=== PATIENT | male | born 1965 | race Caucasian/White ===

== ENCOUNTER 2016-12-15 10:24 | Emergency (ER) | payer OTHER ==
[2016-12-15 10:57] VITALS: BP 133/100; PULSE 65; TEMP 98.2; BMI 29.8
--- NOTE | 2016-12-15 11:17 | PDOC ---
History of Present Illness - General Stated Complaint: FALL (PCP SENT) Time Seen by Provider: 12/15/16 10:53 History Source: Patient Exam Limitations: No Limitations - History of Present Illness Initial Comments: 12/15/16 11:16 CHIEF COMPLAINT: Fall HISTORY OF PRESENT ILLNESS: This is a 50-year-old male with a history of CP, MR , and hypothyroidism sent by his facility for evaluation following a fall from his bed. The patient is able to communicate using an electronic device, and states that he slid out of bed on his own has he wanted to use the bathroom and he did not want to wait for anyone to help him. He denies head trauma or any other injuries. He denies LOC. He denies all complaints. V/s on arrival are notable for diastolic BP of 100. REVIEW OF SYSTEMS: Collateral history obtained from aide at bedside GENERAL/CONSTITUTIONAL: No fever or chills. No weakness. No weight change. HEAD, EYES, EARS, NOSE AND THROAT: No change in vision. No ear pain or discharge. No sore throat. CARDIOVASCULAR: No chest pain or palpitations. RESPIRATORY: Persistent cough > 1wk. GASTROINTESTINAL: No nausea, vomiting, diarrhea or constipation. GENITOURINARY: No dysuria, frequency, or change in urination. MUSCULOSKELETAL: No joint or muscle swelling or pain. No neck or back pain. SKIN: No rash or easy bruising. NEUROLOGIC: No headache, vertigo, loss of consciousness, or loss of sensation. PSYCHIATRIC: No depression or anxiety. ENDOCRINE: No increased thirst. No abnormal weight change. HEMATOLOGIC/LYMPHATIC: No anemia, easy bleeding, or history of blood clots. ALLERGIC/IMMUNOLOGIC: No hives or skin allergy. No latex allergy. PHYSICAL EXAM: GENERAL: The patient is awake, alert, and fully oriented, in no acute distress. HEAD: Normal with no signs of trauma. No cervical spinal tenderness. ENT: Pupils equal, round and reactive to light, extraocular movements intact, sclera anicteric, conjunctiva clear. Neck supple. LUNGS: Scattered ronchi. Productive cough. CV: RRR, S1/S2, no MRG. Cap refill < 2 sec. ABDOMEN: Soft, non-distended, non-tender. EXTREMITIES: Normal range of motion, no edema. NEUROLOGICAL: Minimally verbal, non-ambulatory at baseline. CN II-XII grossly intact. PSYCH: Normal mood, normal affect. SKIN: Warm, dry, normal turgor, no rashes or lesions noted. Past History - Past Medical History Allergies/Adverse Reactions: Allergies Allergy/AdvReac Type Severity Reaction Status Date / Time No Known Allergies Allergy Verified 12/15/16 10:39 Home Medications: Ambulatory Orders Bisacodyl Suppository [Dulcolax Suppository -] 10 mg RC DAILY PRN 12/15/16 Cetirizine HCl [All Day Allergy] 10 mg PO DAILY 12/15/16 Chlorhexidine [Chlorhexidine Flavor] 30 ml PO BID 12/15/16 Fluticasone Prop 0.05% Nasal [Flonase -] 1 - 2 spray NS DAILY 12/15/16 Ibuprofen 400 mg PO DAILY 12/15/16 Levothyroxine Sodium [Levo-T] 137 mcg PO DAILY 12/15/16 Phenol/Glycerin [Chloraseptic Max [place]] 30 ml MM QID 12/15/16 Trazodone HCl 100 mg PO HS 12/15/16 Suicide Attempt (Hx): No Thyroid Disease: Yes (HYPO) Other medical history: mr cb - Immunization History Immunization Up to Date: Yes - Psycho/Social/Smoking Cessation Hx Anxiety: No Suicidal Ideation: No Smoking History: Never smoked Have you smoked in the past 12 months: No Information on smoking cessation initiated: No Hx Alcohol Use: No Drug/Substance Use Hx: No Substance Use Type: None *Physical Exam - Vital Signs Last Vital Signs Temp Pulse Resp BP Pulse Ox 98.2 F 65 18 133/100 100 12/15/16 10:39 12/15/16 10:39 12/15/16 10:39 12/15/16 10:39 12/15/16 10:39 ED Treatment Course - RADIOLOGY Radiology Studies Ordered: Category Date Time Status CHEST X-RAY PORTABLE* [RAD] Stat Radiology 12/15/16 11:05 Ordered Medical Decision Making - Medical Decision Making 12/15/16 12:36 A/P: 50 year old male s/p unwitnessed fall. Denies head injury or LOC. -CXR (productive cough) *DC/Admit/Observation/Transfer Diagnosis at time of Disposition: Cough Fall Qualifiers: Encounter type: initial encounter Qualified Code(s): W19.XXXA - Unspecified fall, initial encounter - Discharge Dispostion Disposition: HOME Admit: No - Patient Instructions Printed Discharge Instructions: How to Prevent Falls Additional Instructions: Cristino was seen for fall and was determined to have no injuries. A chest xray was done for productive cough and was clear. Please return for any concerning symptoms.
== END 2016-12-15 13:30 ==
LOC: JER 10:24
DX: Z04.8 Encounter for examination and observation for other specified reasons (principal); R05 Cough; W06.XXXA Fall from bed, initial encounter; Y93.89 Activity, other specified; Y92.122 Bedroom in nursing home as the place of occurrence of the external cause; G80.8 Other cerebral palsy; F78 Other intellectual disabilities; E03.9 Hypothyroidism, unspecified
CPT/HCPCS: 71010-TC; 99281-25

== ENCOUNTER 2019-05-04 12:01 | Emergency (ER) | payer OTHER ==
[2019-05-04 12:18] VITALS: BP 118/61; PULSE 63; TEMP 98.4; BMI 25.8
--- NOTE | 2019-05-04 12:53 | PDOC ---
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) - History of Present Illness Timing/Duration: reports: week Past History - Past Medical History Allergies/Adverse Reactions: Allergies Allergy/AdvReac Type Severity Reaction Status Date / Time No Known Allergies Allergy Verified 12/15/16 10:39 Home Medications: Ambulatory Orders Bisacodyl Suppository [Dulcolax Suppository -] 10 mg RC DAILY PRN 12/15/16 Cetirizine HCl [All Day Allergy] 10 mg PO DAILY 12/15/16 Chlorhexidine [Chlorhexidine Flavor] 30 ml PO BID 12/15/16 Fluticasone Prop 0.05% Nasal [Flonase -] 1 - 2 spray NS DAILY 12/15/16 Ibuprofen 400 mg PO DAILY 12/15/16 Levothyroxine Sodium [Levo-T] 137 mcg PO DAILY 12/15/16 Phenol/Glycerin [Chloraseptic Max [place]] 30 ml MM QID 12/15/16 traZODone HCL [Trazodone HCl] 100 mg PO HS 12/15/16 COPD: No Thyroid Disease: Yes (HYPO) Other medical history: cerebral palsy, MR, osteoarthritis, Low Vit D. - Immunization History Immunization Up to Date: Yes - Psycho Social/Smoking Cessation Hx Smoking History: Never smoked Have you smoked in the past 12 months: No Information on smoking cessation initiated: No Hx Alcohol Use: No Drug/Substance Use Hx: No Substance Use Type: None Review of Systems - Review of Systems Constitutional: No: Fever Respiratory: Yes: Cough. No: Shortness of Breath, Wheezing *Physical Exam - Vital Signs Last Vital Signs Temp Pulse Resp BP Pulse Ox 98.4 F 63 18 118/61 97 05/04/19 12:05/04/19 12:05/04/19 12:05/04/19 12:05/04/19 12:09 - Physical Exam General Appearance: Yes: Appropriately Dressed. No: Apparent Distress HEENT: positive: Normal Voice Neck: positive: Supple. negative: Lymphadenopathy (R), Lymphadenopathy (L) Respiratory/Chest: positive: Lungs Clear, Normal Breath Sounds. negative: Respiratory Distress Cardiovascular: positive: Regular Rate, S1, S2 Integumentary: positive: Dry, Warm Neurologic: positive: Alert ED Treatment Course - RADIOLOGY Radiology Studies Ordered: Category Date Time Status CHEST PA & LAT [RAD] Stat Radiology 05/04/19 12:44 Ordered Medical Decision Making - Medical Decision Making 05/04/19 13:16 53-year-old male, h/o CP, MR, wheelchair-bound, brought in by staff for mostly dry cough with pleuritic chest pain. No hemoptysis, shortness of breath fever or chills see exam M/l viral URI Exam unremarkable EKG and CXR negative here Dc to continue supportive tx Discharge - Discharge Information Problems reviewed: Yes Clinical Impression/Diagnosis: URI (upper respiratory infection) Qualifiers: URI type: unspecified viral URI Qualified Code(s): J06.9 - Acute upper respiratory infection, unspecified Condition: Stable Disposition: HOME - Follow up/Referral - Patient Discharge Instructions Patient Printed Discharge Instructions: DI for Viral Upper Respiratory Infection -- Adult Additional Instructions: EKG and chest x-ray are both normal here The cause of patient's symptoms is most likely a virus. Continue cough meds and maintain adequate hydration Return to ER as needed - Post Discharge Activity
--- NOTE | 2019-05-04 15:34 | EKG ---
Test Reason : Blood Pressure : / mmHG Vent. Rate : 063 BPM Atrial Rate : 063 BPM P-R Int : 154 ms QRS Dur : 074 ms QT Int : 366 ms P-R-T Axes : 025 018 024 degrees QTc Int : 374 ms POOR DATA QUALITY, INTERPRETATION MAY BE ADVERSELY AFFECTED NORMAL SINUS RHYTHM WITH SINUS ARRHYTHMIA NORMAL ECG WHEN COMPARED WITH ECG OF 15-SEP-2014 18:25, T WAVE AMPLITUDE HAS DECREASED IN ANTERIOR LEADS Confirmed by HIRAL PALAFOX MD ([id number]) on 05/04/2019 3:34:09 PM Referred By: Confirmed By:HIRAL PALAFOX MD
== END 2019-05-04 13:46 | disposition home or self-care (01) ==
LOC: JERFT 12:01
DX: J06.9 Acute upper respiratory infection, unspecified (principal); E03.9 Hypothyroidism, unspecified; G80.9 Cerebral palsy, unspecified; F79 Unspecified intellectual disabilities; M19.90 Unspecified osteoarthritis, unspecified site
CPT/HCPCS: 71046-TC-FY; 93005; 93010; 99282-25

== ENCOUNTER 2022-03-22 20:47 | Emergency (ER) | payer OTHER ==
[2022-03-22 21:08] VITALS: BP 127/87; PULSE 89; RESP 20; TEMP 98; BMI 22.6
== END 2022-03-23 01:38 | disposition home or self-care (01) ==
LOC: JER 20:47
DX: S80.212A Abrasion, left knee, initial encounter (principal); W19.XXXA Unspecified fall, initial encounter
CPT/HCPCS: 73564-TC-LT-FY; 99283-25

== ENCOUNTER 2022-11-12 23:10 | Inpatient (IN) | payer OTHER ==
[2022-11-12 23:35] VITALS: BMI 22.6
[2022-11-12] MEDS ORDERED: ACETAMINOPHEN 1000 MG/100 ML BAG IVPB ONE (23:53)
[2022-11-12] MEDS ORDERED: SODIUM CHLORIDE 0.9% 500 ML INFUS.BAG IV ONE (23:53)
[2022-11-12] MEDS ORDERED: ONDANSETRON 4 MG/2 ML VIAL IVPUSH ONE (23:53)
[2022-11-13] MEDS ORDERED: ONDANSETRON 4 MG/2 ML VIAL ONE (00:07)
[2022-11-13] MEDS ORDERED: ACETAMINOPHEN INJECTION 100 ML IVPB ONE (00:07)
[2022-11-13] MEDS ORDERED: FAMOTIDINE 20 MG/50 ML IVPB 20 MG/50 ML MG IVPB ONE ×2 (00:24→00:37)
[2022-11-13 00:46] LABS: BASO % 0.2 % (0-2.0); EOS % 0.1 % (0-4.5); HEMATOCRIT 42.7 % (35.4-49); HEMOGLOBIN 14.8 GM/dL (11.7-16.9); MCH 29.4 pg (25.7-33.7); MCHC 34.6 g/dl (32.0-35.9); MEAN CELL VOLUME 84.9 fl (80-96); MEAN PLT VOLUME 8.2 fl (7.5-11.1); MONO % 8.3 % (3.8-10.2); NEUT % 85.4 % (42.8-82.8); PLATELET COUNT 231 10^3/uL (134-434); RBC 5.03 M/mm3 (4.00-5.60); WHITE BLOOD COUNT 10.6 K/mm3 (4.0-10.0)
[2022-11-13 01:00] LABS: POTASSIUM 4.1 mmol/L (3.5-5.1)
[2022-11-13 01:03] LABS: ALBUMIN 3.4 g/dl (3.4-5.0); BLOOD UREA NITROGEN 14.5 mg/dL (7-18); CALCIUM 8.9 mg/dL (8.5-10.1); MAGNESIUM 2.1 mg/dL (1.8-2.4)
[2022-11-13 01:06] LABS: CREATININE 0.9 mg/dL (0.55-1.3)
[2022-11-13 01:07] LABS: TOT PROT 7.3 g/dl (6.4-8.2)
[2022-11-13 01:08] LABS: BILIRUBIN,TOTAL 0.2 mg/dL (0.2-1)
[2022-11-13 01:11] LABS: LACTIC ACID 2.4 mmol/L (0.4-2.0)
[2022-11-13] MEDS ORDERED: LIDOCAINE VISCOUS 2% ORAL/TOP 15 ML UNIT-DOSE CUP MM ONE (04:25)
[2022-11-13] MEDS ORDERED: HURRICAINE SP EXT TUBE 1 EA EACH TP ONE (04:44)
[2022-11-13 05:08] LABS: URINE APPEARANCE CLEAR; URINE BILIRUBIN NEGATIVE (NEGATIVE); URINE COLOR YELLOW; URINE GLUCOSE (UA) NEGATIVE (NEGATIVE); URINE KETONE TRACE (NEGATIVE); URINE LEUK ESTERASE NEGATIVE (NEGATIVE); URINE NITRITE NEGATIVE (NEGATIVE); URINE PROTEIN TRACE (NEGATIVE); URINE UROBILINOGEN 0.2 mg/dL (0.2-1.0)
[2022-11-13] MEDS ORDERED: KETOROLAC TROMETHAMINE 15 MG/ML VIAL IVPUSH ONE (05:19)
[2022-11-13] MEDS ORDERED: KETOROLAC TROMETHAMINE 15 MG/ML VIAL ONE (05:37)
[2022-11-13] MEDS ORDERED: SODIUM CHLORIDE 1,000 ML IV SCH (06:15)
[2022-11-13] MEDS ORDERED: ACETAMINOPHEN 1000 MG/100 ML BAG IVPB PRN (07:43)
[2022-11-13] MEDS ORDERED: PANTOPRAZOLE SODIUM 40 MG in SODIUM CHLORIDE 100 ML IVPB SCH (10:00)
[2022-11-13] MEDS: PANTOPRAZOLE SODIUM 40 MG VIAL IVPUSH SCH (10:41)
[2022-11-13 12:33] LABS: HEMATOCRIT 38.9 % (35.4-49); HEMOGLOBIN 13.2 GM/dL (11.7-16.9); MCH 28.9 pg (25.7-33.7); MCHC 33.8 g/dl (32.0-35.9); MEAN CELL VOLUME 85.5 fl (80-96); PLATELET COUNT 197 10^3/uL (134-434); RBC 4.55 M/mm3 (4.00-5.60); WHITE BLOOD COUNT 7.5 K/mm3 (4.0-10.0)
[2022-11-13 12:45] LABS: INR 1.12 (0.83-1.09)
[2022-11-13 12:51] LABS: POTASSIUM 3.9 mmol/L (3.5-5.1)
[2022-11-13 12:54] LABS: CALCIUM 8.8 mg/dL (8.5-10.1)
[2022-11-13 12:56] LABS: BLOOD UREA NITROGEN 13.2 mg/dL (7-18)
[2022-11-13 12:58] LABS: CREATININE 0.8 mg/dL (0.55-1.3)
[2022-11-13 12:59] LABS: BILIRUBIN,TOTAL 0.4 mg/dL (0.2-1); TOT PROT 6.4 g/dl (6.4-8.2)
[2022-11-13 13:09] LABS: ERYTHROCYTE SEDIMENTATION RATE 14 mm/hr (0-20)
[2022-11-13] MEDS ORDERED: IBUPROFEN 800 MG/8 ML IJ IVPB ONE (15:19)
[2022-11-13] MEDS: DEXTROSE 5%-NORMAL SALINE 1,000 ML IV SCH (20:35)
[2022-11-13] MEDS: IBUPROFEN 800 MG/8 ML IJ IVPB SCH (23:32)
[2022-11-14] MEDS: IBUPROFEN 800 MG/8 ML IJ IVPB SCH ×3 (06:13→22:27)
[2022-11-14] MEDS: DEXTROSE 5%-NORMAL SALINE 1,000 ML IV SCH ×2 (07:38→22:32)
[2022-11-14 09:34] LABS: BASO % 0.2 % (0-2.0); EOS % 2.5 % (0-4.5); HEMATOCRIT 37.5 % (35.4-49); HEMOGLOBIN 12.9 GM/dL (11.7-16.9); LYMPH % 24.6 % (8-40); MCH 29.3 pg (25.7-33.7); MCHC 34.4 g/dl (32.0-35.9); MEAN CELL VOLUME 85.1 fl (80-96); MEAN PLT VOLUME 7.8 fl (7.5-11.1); MONO % 12.6 % (3.8-10.2); NEUT % 60.1 % (42.8-82.8); PLATELET COUNT 207 10^3/uL (134-434); RBC 4.41 M/mm3 (4.00-5.60); RDW 13.2 % (11.9-15.9); WHITE BLOOD COUNT 5.9 K/mm3 (4.0-10.0)
[2022-11-14 09:55] LABS: POTASSIUM 3.8 mmol/L (3.5-5.1)
[2022-11-14 10:03] LABS: ALBUMIN 2.9 g/dl (3.4-5.0); BLOOD UREA NITROGEN 11.1 mg/dL (7-18); CREATININE 0.8 mg/dL (0.55-1.3)
[2022-11-14 10:04] LABS: CALCIUM 8.7 mg/dL (8.5-10.1)
[2022-11-14 10:11] LABS: BILIRUBIN,TOTAL 0.2 mg/dL (0.2-1)
[2022-11-14] MEDS: PANTOPRAZOLE SODIUM 40 MG VIAL IVPUSH SCH (10:47)
[2022-11-15] MEDS: IBUPROFEN 800 MG/8 ML IJ IVPB SCH ×3 (06:35→22:23)
[2022-11-15 06:49] LABS: BASO % 0.4 % (0-2.0); EOS % 4.6 % (0-4.5); HEMATOCRIT 35.7 % (35.4-49); HEMOGLOBIN 12.1 GM/dL (11.7-16.9); LYMPH % 30.6 % (8-40); MCHC 33.9 g/dl (32.0-35.9); MEAN CELL VOLUME 85.5 fl (80-96); MEAN PLT VOLUME 8.3 fl (7.5-11.1); NEUT % 51.4 % (42.8-82.8); PLATELET COUNT 222 10^3/uL (134-434); RBC 4.17 M/mm3 (4.00-5.60); RDW 12.3 % (11.9-15.9); WHITE BLOOD COUNT 4.6 K/mm3 (4.0-10.0)
[2022-11-15 07:06] LABS: POTASSIUM 3.5 mmol/L (3.5-5.1)
[2022-11-15 07:08] LABS: CALCIUM 8.3 mg/dL (8.5-10.1)
[2022-11-15 07:09] LABS: ALBUMIN 2.8 g/dl (3.4-5.0); BLOOD UREA NITROGEN 8.9 mg/dL (7-18); MAGNESIUM 1.9 mg/dL (1.8-2.4)
[2022-11-15 07:12] LABS: CREATININE 0.9 mg/dL (0.55-1.3)
[2022-11-15 07:14] LABS: BILIRUBIN,TOTAL 0.3 mg/dL (0.2-1); TOT PROT 5.8 g/dl (6.4-8.2)
[2022-11-15] MEDS: PANTOPRAZOLE SODIUM 40 MG VIAL IVPUSH SCH (09:13)
[2022-11-15] MEDS: DEXTROSE 5%-NORMAL SALINE 1,000 ML IV SCH (17:44)
[2022-11-16] MEDS: IBUPROFEN 800 MG/8 ML IJ IVPB SCH ×3 (06:06→22:19)
[2022-11-16] MEDS: PANTOPRAZOLE SODIUM 40 MG VIAL IVPUSH SCH (08:59)
[2022-11-16] MEDS: ENOXAPARIN NA (PORCINE) 40 MG/0.4 ML DISP.SYRIN SQ SCH (10:15)
[2022-11-16 11:58] LABS: BASO % 0.4 % (0-2.0); EOS % 4.9 % (0-4.5); HEMATOCRIT 36.2 % (35.4-49); HEMOGLOBIN 12.9 GM/dL (11.7-16.9); LYMPH % 32.8 % (8-40); MCH 29.9 pg (25.7-33.7); MCHC 35.5 g/dl (32.0-35.9); MEAN CELL VOLUME 84.1 fl (80-96); MEAN PLT VOLUME 8.1 fl (7.5-11.1); MONO % 9.6 % (3.8-10.2); NEUT % 52.3 % (42.8-82.8); PLATELET COUNT 233 10^3/uL (134-434); RBC 4.31 M/mm3 (4.00-5.60); RDW 12.9 % (11.9-15.9); WHITE BLOOD COUNT 5.7 K/mm3 (4.0-10.0)
[2022-11-16 12:26] LABS: POTASSIUM 3.3 mmol/L (3.5-5.1)
[2022-11-16 12:32] LABS: CALCIUM 8.4 mg/dL (8.5-10.1)
[2022-11-16 12:33] LABS: BLOOD UREA NITROGEN 7.3 mg/dL (7-18)
[2022-11-16 12:36] LABS: CREATININE 0.9 mg/dL (0.55-1.3)
[2022-11-16 12:37] LABS: TOT PROT 6.3 g/dl (6.4-8.2)
[2022-11-16 12:38] LABS: BILIRUBIN,TOTAL 0.3 mg/dL (0.2-1)
[2022-11-16] MEDS ORDERED: SODIUM CHLORIDE 0.45% 1,000 ML IV SCH (13:00)
[2022-11-16] MEDS: KCL 10 MEQ IVPB 10 MEQ/100 ML INFUS.BAG IVPB SCH ×3 (13:16→16:26)
[2022-11-16 22:19] LABS: POTASSIUM 3.2 mmol/L (3.5-5.1)
[2022-11-16 22:22] LABS: BLOOD UREA NITROGEN 5.2 mg/dL (7-18); CALCIUM 8.1 mg/dL (8.5-10.1)
[2022-11-16 22:26] LABS: CREATININE 0.9 mg/dL (0.55-1.3)
[2022-11-17] MEDS ORDERED: POTASSIUM CHLORIDE ORAL LIQUID 20 MEQ/15 ML PO ONE ×2 (02:56→13:30)
[2022-11-17] MEDS: IBUPROFEN 800 MG/8 ML IJ IVPB SCH ×2 (06:12→16:13)
[2022-11-17] MEDS: ENOXAPARIN NA (PORCINE) 40 MG/0.4 ML DISP.SYRIN SQ SCH (09:03)
[2022-11-17] MEDS: PANTOPRAZOLE SODIUM 40 MG VIAL IVPUSH SCH (09:04)
[2022-11-17] MEDS ORDERED: LEVOTHYROXINE SODIUM 100 MCG 5 ML VIAL IVPUSH SCH (10:00)
[2022-11-17] MEDS ORDERED: CITALOPRAM HYDROBROMIDE 20 MG TABLET PO SCH (10:00)
[2022-11-17 15:06] VITALS: BP 119/65; PULSE 74; RESP 18; TEMP 97.9
== END 2022-11-17 16:50 | disposition home or self-care (01) | DRG 389 ==
LOC: JER 23:10 → JERBED 11-13 04:21 → J4S 11-13 07:43
PROVIDERS: ADMIT Internal Medicine; ATTEND Internal Medicine
PROC: 0D9670Z Drainage of Stomach with Drainage Device, Via Natural or Artificial Opening (ICD-10-PCS; principal; 2022-11-13)
DX: K56.609 Unspecified intestinal obstruction, unspecified as to partial versus complete obstruction (principal); E87.0 Hyperosmolality and hypernatremia; I31.9 Disease of pericardium, unspecified; E03.9 Hypothyroidism, unspecified; G80.9 Cerebral palsy, unspecified; F79 Unspecified intellectual disabilities; M19.231 Secondary osteoarthritis, right wrist; E87.6 Hypokalemia
CPT/HCPCS: 0241U-QW; 36415; 71045-TC-FY; 73110-TC-RT-FY; 73130-TC-RT-FY; 73200-TC-RT; 74019-TC-FY; 74177-TC; 80048; 80053; 81003; 82962; 83605; 83690; 83735; 84100; 84484; 85025; 85027; 85610; 85651; 85730; 86140; 87086; 93005; 93010; 93306-TC; 99284-25; 99285-25; Q9967

== ENCOUNTER 2023-04-26 15:28 | Emergency (ER) | payer OTHER ==
[2023-04-26 15:43] VITALS: TEMP 98.4; BMI 22.7
[2023-04-26] MEDS ORDERED: SODIUM CHLORIDE 0.9% 500 ML INFUS.BAG IV ONE ×2 (16:47→18:31)
[2023-04-26 17:14] LABS: BASO % 0.5 % (0-2.0); EOS % 1.2 % (0-4.5); HEMATOCRIT 39.7 % (35.4-49); HEMOGLOBIN 13.4 GM/dL (11.7-16.9); LYMPH % 14.1 % (8-40); MCH 29.3 pg (25.7-33.7); MCHC 33.8 g/dl (32.0-35.9); MEAN CELL VOLUME 86.8 fl (80-96); MEAN PLT VOLUME 7.9 fl (7.5-11.1); MONO % 13.8 % (3.8-10.2); NEUT % 70.4 % (42.8-82.8); PLATELET COUNT 211 10^3/uL (134-434); RBC 4.57 M/mm3 (4.00-5.60); RDW 12.9 % (11.9-15.9); WHITE BLOOD COUNT 8.8 K/mm3 (4.0-10.0)
[2023-04-26 17:34] LABS: POTASSIUM 3.9 mmol/L (3.5-5.1)
[2023-04-26 17:36] LABS: CALCIUM 8.5 mg/dL (8.5-10.1)
[2023-04-26 17:37] LABS: ALBUMIN 3.1 g/dl (3.4-5.0)
[2023-04-26 17:40] LABS: PHOSPHOROUS 2.5 mg/dL (2.5-4.9)
[2023-04-26 17:41] LABS: TOT PROT 6.6 g/dl (6.4-8.2)
[2023-04-26 17:42] LABS: BILIRUBIN,TOTAL 0.3 mg/dL (0.2-1)
[2023-04-26 18:24] LABS: INR 1.17 (0.83-1.09); PROTHROMBIN TIME (PATIENT) 13.6 SEC (9.7-13.0)
[2023-04-26 18:26] LABS: ACTIVATED PTT 28.3 SECONDS (25.2-36.5)
[2023-04-26 18:32] LABS: VENOUS BASE EXCESS 4.1 mmol/L (-2-2); VENOUS PCO2 48.3 mmHg (38-52); VENOUS PH 7.407 (7.310-7.410)
[2023-04-26] MEDS ORDERED: ACETAMINOPHEN 1000 MG/100 ML BAG IVPB ONE (18:32)
[2023-04-26] MEDS ORDERED: ACETAMINOPHEN INJECTION 100 ML IVPB ONE (18:42)
[2023-04-26] MEDS ORDERED: METOPROLOL TARTRATE 50 MG TABLET (FP) PO ONE (18:48)
[2023-04-26] MEDS ORDERED: METOPROLOL TARTRATE 50 MG TABLET (FP) ONE (18:53)
[2023-04-26] MEDS ORDERED: METOPROLOL TARTRATE 5 MG/5 ML VIAL IVPUSH ONE (19:09)
[2023-04-26 20:00] VITALS: BP 106/63; PULSE 114; RESP 20
== END 2023-04-26 20:53 | disposition home or self-care (01) ==
LOC: JER 15:28
PROC: 3E033NZ Introduction of Analgesics, Hypnotics, Sedatives into Peripheral Vein, Percutaneous Approach (ICD-10-PCS; principal; 2023-04-26)
DX: R00.0 Tachycardia, unspecified (principal); R05.9 Cough, unspecified; U07.1 COVID-19
CPT/HCPCS: 0241U-QW; 36415; 71045-TC-FY; 80053; 82553; 82803; 83605; 83735; 84100; 84439; 84443; 84484; 85025; 85610; 85730; 86850; 86900; 86901; 87040; 93005; 93010; 99285-25

== ENCOUNTER 2023-09-02 12:31 | Emergency (ER) | payer OTHER ==
[2023-09-02 13:17] VITALS: BMI 22.2
[2023-09-02] MEDS ORDERED: ACETAMINOPHEN INJECTION 100 ML IVPB ONE (14:14)
[2023-09-02] MEDS ORDERED: ONDANSETRON 4 MG/2 ML VIAL ONE (14:14)
[2023-09-02] MEDS ORDERED: KETOROLAC TROMETHAMINE 15 MG/ML VIAL ONE (14:17)
[2023-09-02] MEDS ORDERED: CEFTRIAXONE 1 GM/50 ML BAG ONE (14:17)
[2023-09-02 14:24] LABS: BASO % 0.2 % (0-2.0); EOS % 1.3 % (0-4.5); HEMOGLOBIN 16.4 GM/dL (11.7-16.9); LYMPH % 3.9 % (8-40); MCH 29.9 pg (25.7-33.7); MCHC 34.2 g/dl (32.0-35.9); MEAN CELL VOLUME 87.2 fl (80-96); MEAN PLT VOLUME 8.2 fl (7.5-11.1); MONO % 7.5 % (3.8-10.2); NEUT % 87.1 % (42.8-82.8); PLATELET COUNT 225 10^3/uL (134-434); WHITE BLOOD COUNT 7.2 K/mm3 (4.0-10.0)
[2023-09-02] MEDS: ONDANSETRON 4 MG/2 ML VIAL IVPUSH ONE (14:25)
[2023-09-02 14:30] LABS: INR 1.1 (0.83-1.09); PROTHROMBIN TIME (PATIENT) 12.4 SEC (9.7-13.0)
[2023-09-02 14:33] LABS: ACTIVATED PTT 25.4 SECONDS (25.2-36.5)
[2023-09-02] MEDS: ACETAMINOPHEN 1000 MG/100 ML BAG IVPB ONE (14:34)
[2023-09-02] MEDS: LACTATED RINGERS SOLUTION 1000 ML INFUS.BAG IV ONE ×2 (14:34→19:21)
[2023-09-02 15:15] LABS: CHLORIDE 106 mmol/L (98-107); SODIUM 134 mmol/L (136-145)
[2023-09-02 15:17] LABS: ALBUMIN 3.5 g/dl (3.4-5.0); BLOOD UREA NITROGEN 20.9 mg/dL (7-18); CO2 24 mmol/L (21-32); GLUCOSE,RANDOM 104 mg/dL (74-106); MAGNESIUM 2.2 mg/dL (1.8-2.4)
[2023-09-02 15:20] LABS: CREATININE 0.9 mg/dL (0.55-1.3)
[2023-09-02 15:22] LABS: BILIRUBIN,TOTAL 0.5 mg/dL (0.2-1)
[2023-09-02 15:23] LABS: ALK PHOS 140 U/L (45-117)
[2023-09-02 15:34] LABS: ANION GAP 4 mmol/L (4-13); POTASSIUM 8.7 mmol/L (3.5-5.1); SGOT/AST 91 U/L (15-37); SGPT/ALT 34 U/L (13-61)
[2023-09-02 15:45] LABS: EPI CELLS 17 /uL (0-25.1); HYALINE CASTS 2 /uL (0-3.1); PH,URINE 5.5 (5.0-8.0); URINE APPEARANCE CLEAR; URINE BACTERIA 36 /uL (0-1359); URINE BILIRUBIN NEGATIVE (NEGATIVE); URINE COLOR DK YELLOW; URINE GLUCOSE (UA) NEGATIVE (NEGATIVE); URINE KETONE 1+ (NEGATIVE); URINE LEUK ESTERASE TRACE (NEGATIVE); URINE NITRITE NEGATIVE (NEGATIVE); URINE PROTEIN TRACE (NEGATIVE); URINE RBC 21 /uL (0-23.9); URINE UROBILINOGEN 0.2 mg/dL (0.2-1.0); URINE WBC 36 /uL (0-25.8)
[2023-09-02 17:13] VITALS: BP 103/71; PULSE 95; RESP 22; TEMP 98.1
[2023-09-02 20:09] LABS: POTASSIUM 3.7 mmol/L (3.5-5.1)
[2023-09-02 20:11] LABS: CALCIUM 8.6 mg/dL (8.5-10.1)
[2023-09-02 20:12] LABS: ALBUMIN 3.1 g/dl (3.4-5.0); BLOOD UREA NITROGEN 17.2 mg/dL (7-18)
[2023-09-02 20:14] LABS: CREATININE 0.8 mg/dL (0.55-1.3)
[2023-09-02 20:16] LABS: BILIRUBIN,TOTAL 0.3 mg/dL (0.2-1); TOT PROT 6.3 g/dl (6.4-8.2)
== END 2023-09-02 20:41 | disposition home or self-care (01) ==
LOC: JER 12:31
PROC: 3E030NZ Introduction of Analgesics, Hypnotics, Sedatives into Peripheral Vein, Open Approach (ICD-10-PCS; principal; 2023-09-02)
PROC: 3E030GC Introduction of Other Therapeutic Substance into Peripheral Vein, Open Approach (ICD-10-PCS; 2023-09-02)
DX: K52.9 Noninfective gastroenteritis and colitis, unspecified (principal); B34.9 Viral infection, unspecified; R11.2 Nausea with vomiting, unspecified; R10.84 Generalized abdominal pain; Z20.822 Contact with and (suspected) exposure to COVID-19
CPT/HCPCS: 0241U-QW; 36415; 71045-TC-FY; 74177-TC; 80048; 80053; 81003; 83605; 83690; 83735; 85025; 85610; 85730; 86850; 86900; 86901; 87086; 93005; 93010; 99285-25; J0131; Q9967

== ENCOUNTER 2023-10-17 18:48 | Emergency (ER) | payer OTHER ==
[2023-10-17 19:05] VITALS: BP 114/66; PULSE 72; RESP 18; TEMP 98.3; BMI 34.4
[2023-10-17] MEDS ORDERED: ACETAMINOPHEN 325 MG TABLET (FP) ONE (20:56)
[2023-10-17] MEDS: ACETAMINOPHEN 325 MG TABLET (FP) PO ONE (21:02)
== END 2023-10-17 22:50 | disposition home or self-care (01) ==
LOC: JER 18:48 → JERFT 18:48 → JER 22:50
DX: M79.662 Pain in left lower leg (principal)
CPT/HCPCS: 93971-TC; 99284-25